=== PATIENT | male | born 1935 | race Caucasian/White ===

== ENCOUNTER → 2023-02-17 13:32 | Outpatient (CLI) | payer OTHER, SELFPAY ==
[2023-02-17 19:54] LABS: Add Manual Diff / Slide Review NO; Basophils Absolute Auto 0 /uL (0-100); Basophils Percent Auto 0.3 % (0-2); Eosinophils Absolute Auto 100 /uL (0-450); Eosinophils Percent Auto 1.1 % (2-4); Hematocrit 42.9 % (41-53); Hemoglobin 15.5 g/dL (13.5-17.5); Lymphocytes Absolute Auto 1500 /uL (1100-4500); Lymphocytes Percent Auto 17.2 % (25-40); Mean Corpuscular HGB Conc 36.1 % (30-36); Mean Corpuscular Hemoglobin 34.2 PG (26-34); Mean Corpuscular Volume 94.7 fL (80-100); Monocytes Absolute Auto 1100 /uL (0-900); Monocytes Percent Auto 12.6 % (3-14); Neutrophils Absolute Auto 6000 /uL (1500-7000); Neutrophils Percent Auto 68.8 % (50-75); Platelet Count 159 X10^3/uL (150-400); Red Blood Cell Count 4.53 X10^6/uL (4.5-5.9); Red Cell Distribution Width 12.9 % (11.6-14.8); White Blood Cell Count 8.7 X10^3/uL (4.5-11.0)
[2023-02-17 20:09] LABS: BUN Creatinine Ratio 32.9 (6-22); Blood Urea Nitrogen 25 mg/dL (9-20); Calcium 9.4 mg/dL (8.4-10.2); Carbon Dioxide 30 mmol/L (22-32); Chloride 99 mmol/L (98-107); Cholesterol 150 mg/dL (140-199); Estimated Glomerular Filt Rate > 60 mL/min (>60); Glucose 139 mg/dL (80-110); HDL Cholesterol 35 mg/dL (40-60); HEMOLYSIS < 15 (0-50); LDL Cholesterol Calculated 88 mg/dL (<100); Potassium 3.6 mmol/L (3.4-5.1); Sodium 138 mmol/L (137-145); Triglycerides 133 mg/dL (35-150)
[2023-02-17 20:30] LABS: Microalbumi Creatinin Ratio Ur 53.9 ug/mg CR (<30); Microalbumin Urine Random 4.8 mg/dL (0-1.6)
[2023-02-17 20:57] LABS: Vitamin B12 944 pg/mL (239-931)
[2023-02-22 16:20] LABS: Albumin 3.6 g/dL (2.9-4.4); Alpha 1 Globulin 0.2 g/dL (0.0-0.4); Alpha 2 Globulin 0.8 g/dL (0.4-1.0); Beta 1 Globulin 1.1 g/dL (0.7-1.3); Protein, Total 6.7 g/dL (6.0-8.5)
== END ==
PROVIDERS: PCP Family Medicine; Visit Provider Family Medicine
DX: E11.9 Type 2 diabetes mellitus without complications (principal); E78.2 Mixed hyperlipidemia; E83.119 Hemochromatosis, unspecified; G60.8 Other hereditary and idiopathic neuropathies; I10 Essential (primary) hypertension
CPT/HCPCS: 80048; 80061; 82043; 82570; 82607; 84155; 84165; 85025

== ENCOUNTER → 2023-02-25 14:54 | Outpatient (CLI) | payer OTHER, SELFPAY ==
[2023-02-25 20:00] LABS: Prostate Specific Antigen 5.75 ng/mL (0.10-4.00)
[2023-02-25 20:04] LABS: Ferritin 107 ng/mL (18-464)
[2023-02-27 02:32] LABS: x Labcorp Estim. Avg Glu (eAG) 160 mg/dL (.); x Labcorp Hemoglobin A1c 7.2 % (4.8-5.6)
== END ==
PROVIDERS: PCP Family Medicine; Visit Provider Family Medicine
DX: E11.9 Type 2 diabetes mellitus without complications (principal); E83.119 Hemochromatosis, unspecified; I10 Essential (primary) hypertension; R36.1 Hematospermia; R97.20 Elevated prostate specific antigen [PSA]
CPT/HCPCS: 82728; 83036; 84153

== ENCOUNTER → 2023-07-01 10:55 | Outpatient (CLI) | payer OTHER, SELFPAY ==
--- NOTE | 2023-07-01 10:57 | DI.US.S_ITS ---
PROCEDURE: US ABDOMEN LIMITED INDICATIONS: HEMACHROMATOSIS - HEPATIC CELLULAR CARCINOMA SCREENING TECHNIQUE: Real-time focused scanning was performed of the abdomen, with image documentation. COMPARISON: [facility], RG, CT ABDOMEN W/WO CONTRAST, 12/20/2014, 12:12. FINDINGS: Pancreas not visualized due to bowel gas. Extrahepatic bile ducts not well visualized likely due to bowel gas. No intrahepatic ductal dilation identified. Liver length of 12.0 cm. Cholelithiasis. No convincing gallbladder wall thickening. No sonographic Dos Santos sign. The liver is echogenic. Ill-defined hypoechoic structure within the right lobe of the liver, 0.9 x 0.8 x 0.7 cm. 9 mm nonobstructing right renal stone. No right hydronephrosis. IMPRESSION: 1. The liver is echogenic, a nonspecific finding commonly seen in the setting of steatosis. 2. Indeterminate 0.9 cm lesion/structure within the right lobe of the liver. Unclear if this corresponds to the finding described in the report for the [address], comparison is difficult due to differences in modality. This could potentially represent a cluster of cysts but other etiologies including a solid mass/lesion are also possible. Could consider ultrasound follow-up to ensure stability and/or attempted characterization with liver protocol MRI or CT. 3. Right nephrolithiasis. 4. Cholelithiasis without sonographic evidence of acute cholecystitis. Dictated by: Will Chaudhari M.D. on 07/02/2023 at 15:42 Approved by: Will Chaudhari M.D. on 07/02/2023 at 15:47
== END ==
PROVIDERS: PCP Family Medicine; Referring Provider Family Medicine; Visit Provider Family Medicine
DX: E83.119 Hemochromatosis, unspecified (principal)
CPT/HCPCS: 76705

== ENCOUNTER → 2023-07-12 13:22 | Outpatient (CLI) | payer OTHER, SELFPAY ==
[2023-07-12 19:53] LABS: Add Manual Diff / Slide Review NO; Basophils Absolute Auto 0 /uL (0-100); Basophils Percent Auto 0.6 % (0-2); Eosinophils Absolute Auto 100 /uL (0-450); Eosinophils Percent Auto 1.9 % (2-4); Hematocrit 44.8 % (41-53); Hemoglobin 16.2 g/dL (13.5-17.5); Lymphocytes Absolute Auto 1500 /uL (1100-4500); Lymphocytes Percent Auto 22.2 % (25-40); Mean Corpuscular HGB Conc 36.1 % (30-36); Mean Corpuscular Volume 94.2 fL (80-100); Monocytes Absolute Auto 700 /uL (0-900); Monocytes Percent Auto 11.2 % (3-14); Neutrophils Absolute Auto 4200 /uL (1500-7000); Neutrophils Percent Auto 64.1 % (50-75); Platelet Count 167 X10^3/uL (150-400); Red Blood Cell Count 4.76 X10^6/uL (4.5-5.9); Red Cell Distribution Width 12.9 % (11.6-14.8); White Blood Cell Count 6.6 X10^3/uL (4.5-11.0)
[2023-07-12 19:56] LABS: HEMOLYSIS < 15 (0-50); Iron 217 ug/dL (49-181)
[2023-07-12 20:12] LABS: Total Iron Binding Capacity 256 ug/dL (261-462); Transferrin 172 mg/dL (206-381)
[2023-07-12 20:13] LABS: Percent Iron Saturation 85 % (20-50)
[2023-07-12 20:27] LABS: Ferritin 67 ng/mL (18-464)
[2023-07-14 16:18] LABS: Alpha Fetoprotein 1.8 ng/mL (0.0-6.4)
== END ==
PROVIDERS: PCP Family Medicine; Visit Provider Family Medicine
DX: E83.119 Hemochromatosis, unspecified (principal)
CPT/HCPCS: 82105; 82728; 83540; 83550; 85025

== ENCOUNTER → 2023-07-13 13:09 | Outpatient (CLI) | payer OTHER, SELFPAY | PROVIDERS: PCP Family Medicine; Visit Provider Specialist | DX: R31.9 Hematuria, unspecified (principal); N40.1 Benign prostatic hyperplasia with lower urinary tract symptoms; N13.8 Other obstructive and reflux uropathy; R31.0 Gross hematuria; N39.43 Post-void dribbling; N21.0 Calculus in bladder | CPT/HCPCS: 52000; 76872; 87086; 99215 ==

== ENCOUNTER → 2023-08-05 10:27 | Outpatient (CLI) | payer OTHER, SELFPAY | PROVIDERS: PCP Family Medicine; Visit Provider Family Medicine | DX: R31.0 Gross hematuria (principal); R30.0 Dysuria | CPT/HCPCS: 87077; 87086 ==

== ENCOUNTER → 2023-08-18 10:51 | Outpatient (CLI) | payer OTHER, SELFPAY ==
--- NOTE | 2023-08-18 10:53 | DI.CT.S_ITS ---
PROCEDURE: CT IVP A/P W/WO INDICATIONS: hematuria TECHNIQUE: Optional 5 mm thick noncontrast images acquired from the diaphragm to the symphysis pubis. After the administration of intravenous contrast, 5 mm thick images acquired from the diaphragm to the symphysis pubis after a 10-minute delay. 2 mm thick coronal and sagittal reformats were then performed of the kidneys and ureters. For radiation dose reduction, the following was used: automated exposure control, adjustment of mA and/or kV according to patient size. COMPARISON: [facility], , CT ABDOMEN W/WO CONTRAST, 12/20/2014, 12:12. FINDINGS: Image quality: Excellent. Lung bases: Lung bases are clear. Heart size is normal. Urinary system: Both kidneys are normal in size, without hydronephrosis or nephrolithiasis on pre-contrast images. No perinephric fat stranding. There is normal bilateral renal enhancement. Renal calyces appear normal in morphology when filled with contrast. Opacified portions of both ureters demonstrate normal caliber. Bladder wall thickness is normal. Low-density cystic lesions are present bilaterally within the renal cortex. There is a 1.7 x 2.0 x 1.5 cm enhancing mass within the upper pole of the left kidney. This measured 1.1 x 0.9 x 1.1 cm on the comparison CT dated December 20, 2014. There is circumferential wall thickening of the bladder and perivesicular fat stranding. There is marked enlargement of the prostate which demonstrates heterogeneous enhancement. The prostate measures 8.9 cm in lateral diameter. The dome of the prostate extends well into the bladder and results in mass effect and luminal volume loss. Other solid organs: Liver is normal in size and enhancement. A solitary calcified gallstone is present in the fundus. No gallbladder wall thickening or pericholecystic fluid. Biliary system is non dilated. Pancreas enhances normally. Spleen is normal in size and enhancement. No adrenal nodules. Peritoneum and bowel: Bowel loops demonstrate normal wall thickness and caliber. There are extensive The appendix is thin walled and gas filled. sigmoid diverticula. No evidence for diverticulitis.No free fluid or air. Nodes and vessels: No retroperitoneal or mesenteric adenopathy by size criteria. Aorta and inferior vena cava are normal in size. There are scattered atheromatous calcifications throughout the aorta and iliac arteries bilaterally. Abdominal wall: No ventral hernias. Pelvis: No pathologic free pelvic fluid. No inguinal adenopathy. There is a small right and a moderate left fat containing inguinal hernia. Bones: No suspicious bony lesions. No vertebral body compression fractures. IMPRESSION: 1. Marked enlargement of the prostate which has a heterogeneous appearance and results in mass effect and luminal volume loss of the bladder. Benign hypertrophy and neoplasm are both considered in the differential. 2. Marked bladder wall thickening suspicious for neoplasm although acute cystitis could also be considered in the differential diagnosis. 3. Enhancing left renal mass which has demonstrated indolent growth when compared to the 2015 study. 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 4. Cholelithiasis. No findings to suggest choledocholithiasis or acute cholecystitis. 5. Extensive diverticulosis. No acute diverticulitis. Normal appendix. Dictated by: Enid Daily M.D. on 08/18/2023 at 17:19 Approved by: Enid Daily M.D. on 08/18/2023 at 17:27
[2023-08-18 11:19] LABS: Estimated Glomerular Filt Rate > 60 mL/min (>60)
== END ==
PROVIDERS: PCP Family Medicine; Referring Provider Specialist; Visit Provider Specialist
DX: Z01.812 Encounter for preprocedural laboratory examination (principal); R31.0 Gross hematuria; N28.89 Other specified disorders of kidney and ureter; N40.0 Benign prostatic hyperplasia without lower urinary tract symptoms; K80.20 Calculus of gallbladder without cholecystitis without obstruction; K57.30 Diverticulosis of large intestine without perforation or abscess without bleeding; N32.9 Bladder disorder, unspecified
CPT/HCPCS: 36415; 74178; 82565; Q9967

== ENCOUNTER → 2024-01-19 10:58 | Outpatient (CLI) | payer OTHER, SELFPAY ==
[2024-01-19 12:26] LABS: Appearance Urine UA CLEAR; Bilirubin Urine UA NEGATIVE (NEGATIVE); Color Urine UA YELLOW; Glucose Urine UA 1+ g/dL (Negative); Ketones Urine UA NEGATIVE (NEGATIVE); Leukocyte Esterase Urine UA NEGATIVE (NEGATIVE); Nitrite Urine UA NEGATIVE (Negative); Occult Blood Urine UA TRACE-INTACT (Negative); Protein Urine UA NEGATIVE (Negative); Specific Gravity Urine UA 1.015 (1.000-1.035); Urobilinogen Urine UA 0.2 E.U./dL (0.2)
[2024-01-19 12:27] LABS: Urine Volume 10mL (spun)
[2024-01-19 12:28] LABS: Bacteria Urine None Seen; Culture Indicated Urine Cult Not Indicated; RBC Urine None Seen (0-5/HPF); Squamous Epithelial Cell Urine None Seen (0-5/HPF); WBC Urine None Seen (0-5/HPF)
[2024-01-20 11:28] LABS: Prostate Specific Antigen 2.33 ng/mL (0.10-4.00)
== END ==
PROVIDERS: PCP Family Medicine; Referring Provider Specialist; Visit Provider Specialist
DX: N30.01 Acute cystitis with hematuria (principal); N40.1 Benign prostatic hyperplasia with lower urinary tract symptoms; N13.8 Other obstructive and reflux uropathy; N21.0 Calculus in bladder; R97.20 Elevated prostate specific antigen [PSA]; R30.0 Dysuria
CPT/HCPCS: 36415; 51741; 51798; 81001; 84153; 99215

== ENCOUNTER → 2024-02-07 11:49 | Outpatient (CLI) | payer OTHER, SELFPAY ==
[2024-02-07 20:17] LABS: Add Manual Diff / Slide Review NO; Basophils Absolute Auto 100 /uL (0-100); Basophils Percent Auto 0.8 % (0-2); Eosinophils Absolute Auto 100 /uL (0-450); Hematocrit 38.5 % (41-53); Hemoglobin 13.7 g/dL (13.5-17.5); Lymphocytes Absolute Auto 1200 /uL (1100-4500); Lymphocytes Percent Auto 18.4 % (25-40); Mean Corpuscular HGB Conc 35.7 % (30-36); Mean Corpuscular Hemoglobin 33.9 PG (26-34); Monocytes Absolute Auto 600 /uL (0-900); Monocytes Percent Auto 8.3 % (3-14); Neutrophils Absolute Auto 4700 /uL (1500-7000); Neutrophils Percent Auto 70.5 % (50-75); Platelet Count 161 X10^3/uL (150-400); Red Blood Cell Count 4.06 X10^6/uL (4.5-5.9); White Blood Cell Count 6.7 X10^3/uL (4.5-11.0)
[2024-02-07 20:22] LABS: Hemoglobin A1C% w Est Avg Glu 7.7 % (4.0-6.0)
[2024-02-07 20:37] LABS: Alanine Aminotransferase 16 IU/L (<50); Albumin 4.1 g/dL (3.5-5.0); Albumin Globulin Ratio 1.6 (1.0-2.8); Alkaline Phosphatase 63 U/L (38-126); Aspartate Aminotransferase 18 IU/L (17-59); BUN Creatinine Ratio 30.7 (6-22); Blood Urea Nitrogen 27 mg/dL (9-20); Calcium 9.3 mg/dL (8.4-10.2); Carbon Dioxide 30 mmol/L (22-32); Chloride 102 mmol/L (98-107); Estimated Glomerular Filt Rate > 60 mL/min (>60); Globulin 2.6 g/dL (1.7-4.1); Glucose 297 mg/dL (80-110); HEMOLYSIS < 15 (0-50); Potassium 3.7 mmol/L (3.4-5.1); Sodium 139 mmol/L (137-145); Total Protein 6.7 g/dL (6.3-8.2)
[2024-02-07 20:48] LABS: LDL Cholesterol Direct 59 mg/dL (<100)
== END ==
PROVIDERS: PCP Family Medicine; Visit Provider Family Medicine
DX: E11.9 Type 2 diabetes mellitus without complications (principal); E78.2 Mixed hyperlipidemia; I10 Essential (primary) hypertension
CPT/HCPCS: 80053; 83036; 83721; 85025

== ENCOUNTER → 2024-02-21 11:40 | Outpatient (CLI) | payer OTHER, SELFPAY ==
[2024-02-21 19:42] LABS: Creatinine Urine Random 79.8 mg/dL
[2024-02-21 19:47] LABS: Microalbumi Creatinin Ratio Ur 28.8 ug/mg CR (<30); Microalbumin Urine Random 2.3 mg/dL (0-1.6)
== END ==
PROVIDERS: PCP Family Medicine; Visit Provider Family Medicine
DX: E11.42 Type 2 diabetes mellitus with diabetic polyneuropathy (principal); E11.29 Type 2 diabetes mellitus with other diabetic kidney complication; R80.9 Proteinuria, unspecified
CPT/HCPCS: 82043; 82570

== ENCOUNTER → 2024-07-25 13:56 | Outpatient (CLI) | payer OTHER, SELFPAY ==
[2024-07-25 19:43] LABS: Prostate Specific Antigen 2.02 ng/mL (0.10-4.00)
== END ==
PROVIDERS: Urology; PCP Family Medicine; Visit Provider Physician Assistant
DX: R97.20 Elevated prostate specific antigen [PSA] (principal); N40.1 Benign prostatic hyperplasia with lower urinary tract symptoms; N13.8 Other obstructive and reflux uropathy
CPT/HCPCS: 84153

== ENCOUNTER → 2024-08-28 13:34 | Outpatient (CLI) | payer OTHER, SELFPAY ==
[2024-08-28 19:25] LABS: Add Manual Diff / Slide Review NO; Basophils Absolute Auto 0 /uL (0-100); Basophils Percent Auto 0.5 % (0-2); Eosinophils Absolute Auto 100 /uL (0-450); Eosinophils Percent Auto 1.4 % (2-4); Hematocrit 37.7 % (41-53); Hemoglobin 13.3 g/dL (13.5-17.5); Lymphocytes Absolute Auto 1500 /uL (1100-4500); Lymphocytes Percent Auto 18.9 % (25-40); Mean Corpuscular HGB Conc 35.3 % (30-36); Mean Corpuscular Hemoglobin 33.5 PG (26-34); Monocytes Absolute Auto 1000 /uL (0-900); Neutrophils Absolute Auto 5400 /uL (1500-7000); Neutrophils Percent Auto 67.2 % (50-75); Platelet Count 160 X10^3/uL (150-400); Red Blood Cell Count 3.97 X10^6/uL (4.5-5.9); White Blood Cell Count 8.1 X10^3/uL (4.5-11.0)
[2024-08-28 19:31] LABS: Alanine Aminotransferase 19 IU/L (<50); Albumin 3.9 g/dL (3.5-5.0); Albumin Globulin Ratio 1.2 (1.0-2.8); Alkaline Phosphatase 57 U/L (38-126); Aspartate Aminotransferase 49 IU/L (17-59); Bilirubin Total 0.9 mg/dL (0.2-1.3); Blood Urea Nitrogen 25 mg/dL (9-20); Calcium 9.6 mg/dL (8.4-10.2); Carbon Dioxide 30 mmol/L (22-32); Chloride 102 mmol/L (98-107); Estimated Glomerular Filt Rate > 60 mL/min (>60); Globulin 3.2 g/dL (1.7-4.1); Glucose 210 mg/dL (80-110); HEMOLYSIS < 15 (0-50); Potassium 3.4 mmol/L (3.4-5.1); Sodium 137 mmol/L (137-145); Total Protein 7.1 g/dL (6.3-8.2)
[2024-08-28 20:03] LABS: Ferritin 35 ng/mL (18-464)
== END ==
PROVIDERS: PCP Family Medicine; Visit Provider Family Medicine
DX: E11.42 Type 2 diabetes mellitus with diabetic polyneuropathy (principal); I10 Essential (primary) hypertension; E83.119 Hemochromatosis, unspecified; E87.6 Hypokalemia
CPT/HCPCS: 80053; 82728; 83036; 85025

== ENCOUNTER → 2024-12-21 13:46 | Outpatient (CLI) | payer OTHER, SELFPAY ==
[2024-12-21 20:03] LABS: Prostate Specific Antigen 1.76 ng/mL (0.10-4.00)
== END ==
PROVIDERS: PCP Family Medicine; Visit Provider Urology
DX: N40.1 Benign prostatic hyperplasia with lower urinary tract symptoms (principal); N13.8 Other obstructive and reflux uropathy; N21.0 Calculus in bladder
CPT/HCPCS: 84153

== ENCOUNTER → 2025-01-23 09:29 | Outpatient (CLI) | payer OTHER, SELFPAY ==
[2025-01-23 18:53] LABS: Add Manual Diff / Slide Review NO; Basophils Absolute Auto 0 /uL (0-100); Basophils Percent Auto 0.5 % (0-2); Eosinophils Absolute Auto 100 /uL (0-450); Eosinophils Percent Auto 1.7 % (2-4); Hematocrit 40.9 % (41-53); Hemoglobin 14.7 g/dL (13.5-17.5); Lymphocytes Absolute Auto 1200 /uL (1100-4500); Lymphocytes Percent Auto 18.1 % (25-40); Mean Corpuscular HGB Conc 35.8 % (30-36); Mean Corpuscular Hemoglobin 33.7 PG (26-34); Mean Corpuscular Volume 94.1 fL (80-100); Monocytes Absolute Auto 700 /uL (0-900); Monocytes Percent Auto 10.9 % (3-14); Neutrophils Absolute Auto 4700 /uL (1500-7000); Neutrophils Percent Auto 68.8 % (50-75); Platelet Count 143 X10^3/uL (150-400); Red Blood Cell Count 4.35 X10^6/uL (4.5-5.9); Red Cell Distribution Width 12.9 % (11.6-14.8); White Blood Cell Count 6.8 X10^3/uL (4.5-11.0)
[2025-01-23 19:05] LABS: HEMOLYSIS < 15 (0-50); Iron 142 ug/dL (49-181)
[2025-01-23 19:06] LABS: Alanine Aminotransferase 17 IU/L (<50); Albumin 4.3 g/dL (3.5-5.0); Albumin Globulin Ratio 1.7 (1.0-2.8); Alkaline Phosphatase 53 U/L (38-126); Aspartate Aminotransferase 19 IU/L (17-59); BUN Creatinine Ratio 28.4 (6-22); Bilirubin Total 1.2 mg/dL (0.2-1.3); Blood Urea Nitrogen 27 mg/dL (9-20); Calcium 9.5 mg/dL (8.4-10.2); Carbon Dioxide 25 mmol/L (22-32); Chloride 103 mmol/L (98-107); Estimated Glomerular Filt Rate > 60 mL/min (>60); Globulin 2.6 g/dL (1.7-4.1); Glucose 169 mg/dL (80-110); HEMOLYSIS < 15 (0-50); Potassium 3.7 mmol/L (3.4-5.1); Sodium 139 mmol/L (137-145); Total Protein 6.9 g/dL (6.3-8.2)
[2025-01-23 19:19] LABS: LDL Cholesterol Direct 46 mg/dL (<100); Percent Iron Saturation 60 % (20-50); Total Iron Binding Capacity 237 ug/dL (261-462); Transferrin 161 mg/dL (206-381)
[2025-01-23 19:49] LABS: Ferritin 56 ng/mL (18-464)
[2025-01-23 20:03] LABS: Vitamin B12 650 pg/mL (239-931)
== END ==
PROVIDERS: PCP Family Medicine; Visit Provider Family Medicine
DX: I70.0 Atherosclerosis of aorta (principal); D50.9 Iron deficiency anemia, unspecified; R97.20 Elevated prostate specific antigen [PSA]; E83.119 Hemochromatosis, unspecified; I10 Essential (primary) hypertension; E78.2 Mixed hyperlipidemia; E87.6 Hypokalemia; E11.29 Type 2 diabetes mellitus with other diabetic kidney complication; R80.9 Proteinuria, unspecified; E11.42 Type 2 diabetes mellitus with diabetic polyneuropathy; L98.9 Disorder of the skin and subcutaneous tissue, unspecified
CPT/HCPCS: 80053; 82607; 82728; 83540; 83550; 83721; 85025

== ENCOUNTER → 2025-02-26 15:52 | Outpatient (CLI) | payer OTHER, SELFPAY ==
[2025-02-27 19:28] LABS: Creatinine Urine Random 35.72 mg/dL
[2025-02-27 19:32] LABS: Microalbumin Urine Random 1.1 mg/dL (0-1.6)
== END ==
PROVIDERS: PCP Family Medicine; Visit Provider Family Medicine
DX: E11.42 Type 2 diabetes mellitus with diabetic polyneuropathy (principal); E11.29 Type 2 diabetes mellitus with other diabetic kidney complication; R80.9 Proteinuria, unspecified
CPT/HCPCS: 82043; 82570

== ENCOUNTER → 2025-06-27 12:59 | Outpatient (CLI) | payer OTHER, SELFPAY ==
--- NOTE | 2025-07-03 16:55 | DI.NM.S_ITS ---
DATE OF SERVICE: 06/27/2025 NUCLEAR CARDIOLOGY MYOCARDIAL PERFUSION STUDY PROCEDURE: Pharmacologic vasodilator stress and rest myocardial perfusion imaging with gating to assess ejection fraction and regional wall motion. ORDERING PROVIDER: Dr. Maye Garcia. INDICATIONS: The patient is an 89-year-old diabetic male with exertional dyspnea. CARDIAC STRESS: Per protocol, 0.4 mg of regadenoson was infused with a normal hemodynamic response. He developed minimal dyspnea and no chest discomfort. His resting ECG shows sinus rhythm with nonspecific ST- segment abnormalities, predominantly in the lateral leads. With stress, there were no significant ST-segment shifts and only rare, isolated PACs and PVCs without complex ectopy. Per protocol, 24.7 millicuries of technetium-99m Myoview was injected and he was imaged 15 minutes later using a gated SPECT acquisition protocol. Six days later, while at rest, he was injected with 25.4 mCi of technetium-99m Myoview was imaged 10 minutes later, again using a gated SPECT acquisition protocol. FINDINGS: 1. Raw data. There is fair myocardial tracer uptake but considerable patient motion that can introduce artifact. The lung/heart ratio is normal at 0.31 with a normal TID ratio of 0.97. 2. Quantitated gated SPECT: Post-stress ejection fraction is 71% without any focal wall motion abnormality and specifically, the inferior wall has normal contractility. The resting ejection fraction is 66% with a normal resting end-diastolic volume of 111 mL. 3. Myocardial perfusion imaging: Post-stress supine images show a mild perfusion defect in the inferior wall in a pattern consistent with diaphragmatic attenuation although on the prone images the defect persists to a slight degree in the distal inferior wall, suggesting that it could reflect a true perfusion defect. The resting images show an identical perfusion pattern with minimal, if any improvement in the defect. IMPRESSION: 1. Probable abnormal but low risk perfusion study with reduced specificity because of considerable patient motion artifact which could introduce artifact. 2. Relatively small, fixed perfusion defect in the mid to distal inferior wall that incompletely resolves on prone imaging. This could reflect diaphragmatic attenuation artifact or previous nontransmural infarction, but there is no compelling evidence for any significant myocardial ischemia. 3. Normal left ventricular size and systolic function without any focal wall motion abnormality. 4. No angina or ECG evidence of ischemia with pharmacologic vasodilator stress. Rare PACs and PVCs were noted, but no complex ectopy. Davi Hoover - CHIP/amador/RIANA doc#: [id number]/job#: [id number] dd: 07/03/2025 16:34:00 dt: 07/03/2025 16:40:00 DICTATING MD/COPIES TO: Hiram Levy MD; Dr. Maye Garcia. COPIES MNE: ASHA; ; Dr. Maye Garcia.
== END ==
PROVIDERS: PCP Family Medicine; Referring Provider Family Medicine; Visit Provider Family Medicine
DX: I44.7 Left bundle-branch block, unspecified (principal); I10 Essential (primary) hypertension; R53.83 Other fatigue; R68.89 Other general symptoms and signs; R09.02 Hypoxemia
CPT/HCPCS: 78452; 93017; A9502; J2785

== ENCOUNTER → 2025-07-03 14:46 | Outpatient (CLI) | payer OTHER, SELFPAY ==
[2025-07-03 15:30] LABS: Hemoglobin A1C% w Est Avg Glu 6.9 % (4.0-6.0)
[2025-07-03 15:43] LABS: Blood Urea Nitrogen 24 mg/dL (9-20); Calcium 9.7 mg/dL (8.4-10.2); Carbon Dioxide 26 mmol/L (22-32); Chloride 100 mmol/L (98-107); Estimated Glomerular Filt Rate > 60 mL/min (>60); Glucose 117 mg/dL (70-99); HEMOLYSIS < 15 (0-50); Potassium 3.9 mmol/L (3.4-5.1); Sodium 138 mmol/L (137-145)
[2025-07-03 16:16] LABS: Prostate Specific Antigen 2.23 ng/mL (0.10-4.00)
== END ==
PROVIDERS: PCP Family Medicine; Referring Provider Urology; Visit Provider Family Medicine
DX: R97.20 Elevated prostate specific antigen [PSA] (principal); N40.1 Benign prostatic hyperplasia with lower urinary tract symptoms; N13.8 Other obstructive and reflux uropathy; I10 Essential (primary) hypertension; E11.42 Type 2 diabetes mellitus with diabetic polyneuropathy
CPT/HCPCS: 80048; 83036; 84153

== ENCOUNTER → 2025-07-12 14:32 | Outpatient (CLI) | payer OTHER, SELFPAY | PROVIDERS: PCP Family Medicine; Visit Provider Physician Assistant Medical | DX: L03.039 Cellulitis of unspecified toe (principal) | CPT/HCPCS: 87070; 87075; 87205 ==

== ENCOUNTER → 2025-09-14 10:41 | Outpatient (CLI) | payer OTHER, SELFPAY ==
[2025-09-14 12:10] LABS: Add Manual Diff / Slide Review NO; Hematocrit 42.5 % (41-53); Hemoglobin 15.1 g/dL (13.5-17.5); Lymphocytes Absolute Auto 1000 /uL (1100-4500); Mean Corpuscular HGB Conc 35.4 % (30-36); Mean Corpuscular Hemoglobin 32.5 PG (26-34); Mean Corpuscular Volume 91.8 fL (80-100); Platelet Count 140 X10^3/uL (150-400)
[2025-09-14 12:37] LABS: Alanine Aminotransferase 20 IU/L (<50); Albumin 3.9 g/dL (3.5-5.0); Albumin Globulin Ratio 1.3 (1.0-2.8); Alkaline Phosphatase 60 U/L (38-126); Blood Urea Nitrogen 39 mg/dL (9-20); Calcium 9.2 mg/dL (8.4-10.2); Carbon Dioxide 25 mmol/L (22-32); Chloride 103 mmol/L (98-107); Estimated Glomerular Filt Rate > 60 mL/min (>60); Globulin 3.0 g/dL (1.7-4.1); Glucose 178 mg/dL (70-99); HEMOLYSIS < 15 (0-50); Potassium 3.6 mmol/L (3.4-5.1); Sodium 142 mmol/L (137-145); Total Protein 6.9 g/dL (6.3-8.2)
[2025-09-14 13:08] LABS: TSH w/ Reflex to FT4 0.63 uIU/mL (0.47-4.68)
== END ==
PROVIDERS: PCP Family Medicine; Referring Provider Physician Assistant Medical; Visit Provider Physician Assistant Medical
DX: R53.83 Other fatigue (principal)
CPT/HCPCS: 36415; 80053; 84443; 85025

== ENCOUNTER → 2025-09-27 09:00 | Outpatient (CLI) | payer OTHER, SELFPAY ==
--- NOTE | 2025-09-27 09:02 | DI.ECHO.S_ITS ---
[facility]+ [facility] : : [id number] : [place] : : [id number] : : Phone: [phone] Echocardiogram Report + + :Name: ALYSHA FRANKLIN V Study Date: 09/27/2025 Height: 70.5 in: :[facility] ReadingLocation: Weight: 166 lb : : Gender: Male BSA: 1.9 m2 : :: 1935 Age: 89 yrs BP: 125/73 mmHg: :Reason For Study: Dyspnea, abnormal stress test : :Ordering Physician: MARTHA, : :LEO Performed By: Kofi Sun : :Referring: LEO THOMAS : + + Interpretation Summary 1) Normal left ventricular size, wall motion, and systolic function (EF 55- 60%). There is mild-moderate concentric left ventricular hypertrophy. 2) Normal right ventricular size and function. 3) No significant valvular abnormalities. 4) The ascending aorta is mildly enlarged at 4.2cm. 5) No prior Echo available for comparison. Procedure: A two-dimensional transthoracic echocardiogram with color flow and Doppler was performed. The study quality was technically adequate. There is no prior echocardiogram noted for this patient. The patient was in normal sinus rhythm during the exam. Left Ventricle: The left ventricle is normal in size. There is mild-moderate concentric left ventricular hypertrophy. Left ventricular systolic function is normal. The ejection fraction is estimated to be 55-60%. Grade I diastolic dysfunction with normal left atrial pressure. Right Ventricle: The right ventricle is normal in size and function. Atria: The left atrial size is normal. Right atrial size is normal. There is no Doppler evidence for an interatrial shunt. Mitral Valve: The mitral valve leaflets appear to open well. There is no mitral valve stenosis. There is mild mitral regurgitation. Aortic Valve: The aortic valve is trileaflet. The aortic valve opens well. There is no aortic valve stenosis. There is mild aortic regurgitation. Tricuspid Valve: The tricuspid valve is not well visualized, but is grossly normal. There is trace tricuspid regurgitation. The right ventricular systolic pressure is estimated to be at least 29 mmHg based on an estimated right atrial pressure of 3 mm Hg. Pulmonic Valve: The pulmonic valve is not well seen, but is grossly normal. There is trace pulmonic regurgitation. Great Vessels: The aortic root is mildly dilated. Max diameter of the aortic root in the area of the sinus of Valsalva is 4.1 cm. The ascending aorta is mildly enlarged. Proximal ascending aorta with a max diameter of 4.2 cm. The aortic arch could not be visualized. The pulmonary artery is normal size. The IVC is of normal diameter and collapses greater than 50% with a sniff. This suggests a low right atrial pressure of 3 mm Hg. Pericardium/ Pleura There is no pericardial effusion. MMode/2D Measurements & Calculations LVIDd: 4.1 cm LVOT diam: 2.2 cm LVIDs: 3.1 cm Ao root diam: 4.1 cm FS: 24.5 % asc Aorta Diam: 4.2 cm IVSd: 1.4 cm LVPWd: 1.4 cm LV joseph. diameter/BSA (cm/m^2): 2.1 LV sys. diameter/BSA (cm/m^2): 1.6 LA A2 area: 18.2 cm2 RA long axis: 5.6 cm LA A4 area: 16.4 cm2 RA area: 15.6 cm2 LA length (vol): 5.2 cm RA vol: 37.1 ml LA vol: 49.1 ml RA : 19.2 ml/m2 LA vol index: 25.3 ml/m2 IVC diam: 0.99 cm RVD1 (basal): 2.8 cm RVD2 (mid): 2.7 cm TAPSE: 2.1 cm Doppler Measurements & Calculations Ao V2 max: 139.0 cm/sec LVOT Max Roosevelt: 94.0 cm/sec Ao V2 mean: 97.8 cm/sec LV V1 max P.5 mmHg Ao max P.7 mmHg LV V1 VTI: 17.7 cm Ao mean P.2 mmHg COLTON(I,D): 2.5 cm2 Ao V2 VTI: 26.5 cm COLTON(V,D): 2.5 cm2 sev ratio: 0.67 COLTON indexed to BSA (cm^2/m^2): 1.3 AI P1/2t: 656.1 msec AI dec slope: 152.3 cm/sec2 MV E max roosevelt: 63.6 cm/sec TR max roosevelt: 253.0 cm/sec MV A max roosevelt: 89.6 cm/sec TR max P.6 mmHg MV E/A: 0.71 PA V2 max: 106.4 cm/sec MV dec time: 0.20 sec PA V2 mean: 77.4 cm/sec PA mean P.6 mmHg PA pr(Accel): 44.3 mmHg SV(LVOT): 65.6 ml Qp/Qs (V,Ao): 1.0/9.0 Qp/Qs (V,LVOT): 1.0/1.7 Reading Physician:10:39 AM
== END ==
LOC: ECHO 09:01
PROVIDERS: PCP Family Medicine; Referring Provider Family Medicine; Visit Provider Family Medicine
DX: I07.0 Rheumatic tricuspid stenosis (principal); I77.810 Thoracic aortic ectasia; I77.89 Other specified disorders of arteries and arterioles; I10 Essential (primary) hypertension; R68.89 Other general symptoms and signs; R53.83 Other fatigue; I44.7 Left bundle-branch block, unspecified; R93.1 Abnormal findings on diagnostic imaging of heart and coronary circulation
CPT/HCPCS: 93306